=== PATIENT | female | born 1960 | race Caucasian/White ===

== ENCOUNTER 2020-11-28 07:06 | Emergency (ER) | payer BC, OTHER ==
[~2020-11-28] VITALS: Ht 167.7 cm; Wt 121.8 kg
[2020-11-28] MEDS ORDERED: KETOROLAC 30 MG/ML VIAL IVP ONE (07:30)
[2020-11-28] MEDS ORDERED: ORPHENADRINE 60 MG/2 ML (NORFLEX) AMP (ED ONLY) IV ONE (07:30)
[2020-11-28 07:43] LABS: BASOPHILS # (AUTO) 0.1 10^3/uL (0.0-0.1); BASOPHILS % (AUTO) 1 % (0-10); EOSINOPHILS # (AUTO) 0.1 10^3/uL (0.0-0.3); EOSINOPHILS % (AUTO) 1 % (0-10); HEMATOCRIT 32 % (35-52); HEMOGLOBIN 10.4 g/dL (11.5-16.0); LYMPHOCYTES # (AUTO) 0.6 10^3/uL (1.0-4.0); LYMPHOCYTES % (AUTO) 6 % (12-44); MEAN CORPUSCULAR HEMOGLOBIN 30 pg (25-34); MEAN CORPUSCULAR HGB CONC 33 g/dL (32-36); MEAN CORPUSCULAR VOLUME 90 fL (80-99); MEAN PLATELET VOLUME 12.5 fL (9.0-12.2); MONOCYTES # (AUTO) 0.5 10^3/uL (0.0-1.0); MONOCYTES % (AUTO) 5 % (0-12); NEUTROPHILS # (AUTO) 8.4 10^3/uL (1.8-7.8); NEUTROPHILS % (AUTO) 86 % (42-75); PLATELET COUNT 365 10^3/uL (130-400); WHITE BLOOD COUNT 9.8 10^3/uL (4.3-11.0)
[2020-11-28 07:55] LABS: POTASSIUM 4.5 MMOL/L (3.6-5.0)
[2020-11-28 07:56] LABS: CALCIUM 9.5 MG/DL (8.5-10.1)
[2020-11-28 08:00] LABS: CREATININE SERUM 0.88 MG/DL (0.60-1.30)
[2020-11-28 08:03] LABS: MAGNESIUM 1.9 MG/DL (1.6-2.4)
--- NOTE | 2020-11-28 08:03 | ED Back Pain ---
General Chief Complaint: Back Problems Stated Complaint: MUSCLE SPASMS Nursing Triage Note: TO ED PER EMS FROM HOME. PATIENT REPORTS IS HAVING BACK SPASMS THAT GO DOWN LEG. SINCE YESTERDAY. 50 MCG OF FENTYNEL GIVEN IM BY EMS. Source of Information: Patient Exam Limitations: No Limitations History of Present Illness Date Seen by Provider: Nov 28, 2020 Time Seen by Provider: 07:58 Initial Comments This is 60-year-old woman presents to the emergency room via EMS with greater than 12 hours of severe exacerbation of lower back pain with associated radicular symptoms down the left leg. Symptoms actually started over a month ago when she had a foot injury and she was using a postop shoe. Gait was altered. She has since been seen multiple times and engaged in physical therapy. She reports a resulting leg length discrepancy that she has been working to mitigate. She has not yet had any imaging of her back. Today she reports spasms in her lower back that seem to be centralized and bilateral. She additionally has spasms, numbness, and pain intermittently in the left lower extremity. She has been taking doses of ibuprofen, baclofen, and tramadol at home without complete relief. She has had difficulty ambulating due to her pain. Patient typically takes Celebrex but stopped that several days ago and started taking ibuprofen due to better efficacy in controlling this acute exacerbation of pain. She denies any significant weakness in the leg, bowel or bladder dysfunction, or groin numbness. Patient reports chronic illnesses including diet-controlled diabetes, essential thrombocythemia, and history of breast cancer status post left mastectomy. Allergies and Home Medications Allergies Coded Allergies: mercury (elemental) (Verified Allergy, Unknown, 11/28/20) Patient Home Medication List Home Medication List Reviewed: Yes Docusate Sodium (Colace) 100 Mg Capsule, 100 MG PO DAILY Prescribed by: BLAKE DSOUZA on 11/28/20 0852 Hydrocodone/Acetaminophen (Hydrocodone-Acetamin 5-325 mg) 1 Each Tablet, 1 TAB PO Q4H PRN for PAIN-BREAKTHROUGH Prescribed by: BLAKE DSOUZA on 11/28/20 0853 Review of Systems Constitutional: no symptoms reported EENTM: no symptoms reported Respiratory: no symptoms reported Cardiovascular: no symptoms reported Gastrointestinal: no symptoms reported Genitourinary: no symptoms reported Musculoskeletal: see HPI Skin: no symptoms reported Psychiatric/Neurological: See HPI Past Pegzslj-Loopie-Efneut Hx Patient Social History Tobacco Use?: No Use of E-Cig and/or Vaping dev: No Substance use?: No Pt feels they are or have been: No Immunizations Up To Date First/Initial COVID19 Vaccinat: FEB Second COVID19 Vaccination Anthony: SHANTEL COVID19 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 oz. 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 Norm as Tested Skin: Normal Color, Warm/Dry Progress/Results/Core Measures Results/Orders Lab Results Laboratory Tests Test 11/28/20 07:30 Range/Units White Blood Count 9.8 4.3-11.0 10^3/uL Red Blood Count 3.52 L 3.80-5.11 10^6/uL Hemoglobin 10.4 L 11.5-16.0 g/dL Hematocrit 32 L 35-52 % Mean Corpuscular Volume 90 80-99 fL Mean Corpuscular Hemoglobin 30 25-34 pg Mean Corpuscular Hemoglobin Concent 33 32-36 g/dL Red Cell Distribution Width 16.5 H 10.0-14.5 % Platelet Count 365 130-400 10^3/uL Mean Platelet Volume 12.5 H 9.0-12.2 fL Immature Granulocyte % (Auto) 1 % Neutrophils (%) (Auto) 86 H 42-75 % Lymphocytes (%) (Auto) 6 L 12-44 % Monocytes (%) (Auto) 5 0-12 % Eosinophils (%) (Auto) 1 0-10 % Basophils (%) (Auto) 1 0-10 % Neutrophils # (Auto) 8.4 H 1.8-7.8 10^3/uL Lymphocytes # (Auto) 0.6 L 1.0-4.0 10^3/uL Monocytes # (Auto) 0.5 0.0-1.0 10^3/uL Eosinophils # (Auto) 0.1 0.0-0.3 10^3/uL Basophils # (Auto) 0.1 0.0-0.1 10^3/uL Immature Granulocyte # (Auto) 0.1 0.0-0.1 10^3/uL Neutrophils % (Manual) 84 % Lymphocytes % (Manual) 8 % Monocytes % (Manual) 6 % Eosinophils % (Manual) 1 % Basophils % (Manual) 0 % Band Neutrophils 1 % Anisocytosis SLIGHT Sodium Level 137 135-145 MMOL/L Potassium Level 4.5 3.6-5.0 MMOL/L Chloride Level 108 H 98-107 MMOL/L Carbon Dioxide Level 15 L 21-32 MMOL/L Anion Gap 14 5-14 MMOL/L Blood Urea Nitrogen 20 H 7-18 MG/DL Creatinine 0.88 0.60-1.30 MG/DL Estimat Glomerular Filtration Rate 65 BUN/Creatinine Ratio 23 Glucose Level 131 H 70-105 MG/DL Calcium Level 9.5 8.5-10.1 MG/DL Magnesium Level 1.9 1.6-2.4 MG/DL My Orders Orders - BLAKE OATES MD Basic Metabolic Panel (11/28/20 07:19) Cbc With Automated Diff (11/28/20 07:19) Magnesium (11/28/20 07:19) Ed Iv/Invasive Line Start (11/28/20 07:19) Iron Tibc %Sat & Ferritin (11/28/20 07:19) Ketorolac Injection (Toradol Injection) (11/28/20 07:30) Orphenadrine Inj (Ed Only) (Norflex Inje (11/28/20 07:30) Manual Differential (11/28/20 07:30) Medications Given in ED Current Medications Medications Dose Ordered Sig/Favian Route Start Time Stop Time Status Last Admin Dose Admin Ketorolac Tromethamine 30 mg ONCE ONCE IVP 11/28/20 07:30 11/28/20 07:31 DC 11/28/20 07:33 30 MG Orphenadrine Citrate 30 mg ONCE ONCE IV 11/28/20 07:30 11/28/20 07:31 DC 11/28/20 07:31 30 MG Vital Signs/I&O 11/28/20 11/28/20 07:06 09:14 Temp 36.4 Pulse 78 65 Resp 18 18 B/P (MAP) 193/94 (127) 167/86 Pulse Ox 100 96 O2 Delivery Room Air Blood Pressure Mean: 127 Progress Progress Note #1: Time: 08:06 Progress Note Due to patient's chronic conditions we are checking a CBC and electrolytes as well as iron. Patient has been treated with Toradol and Norflex. We will monitor her progress and treat with additional medications if necessary. Emergent imaging is not deemed necessary at this time due to lack of evidence for spinal cord compression or traumatic injury. Progress Note #2: Progress Note Labs were unremarkable. Patient had an excellent response to Toradol and Norflex. We discussed options for further pain management and decided on hydrocodone. Prescription was provided. We discussed return precautions and need for follow-up in the outpatient setting. Patient was ambulatory and satisfied with her improvement. She was discharged with plan to return home by [facility]. Departure Impression Primary Impression: Low back pain Qualified Codes: M54.42 - Lumbago with sciatica, left side Additional Impression: Muscle spasm Disposition: 01 HOME, SELF-CARE Condition: Improved Departure-Patient Inst. Decision time for Depature: 08:08 Referrals: JUAN F GONZALEZ MD (PCP/Family) Primary Care Physician Patient Instructions: Low Back Pain in Adults, Radiculopathy Add. Discharge Instructions: Continue with therapies as previously directed by your primary health care team. You may substitute hydrocodone for the Ultram for more intense pain. Please use hydrocodone with caution when also using other potentially sedating medications such as Ultram or baclofen. You may wish to take a stool softener such as Colace or mild laxative MiraLAX (polyethylene glycol) to help prevent constipation while using opioids like hydrocodone. Follow-up with your primary care provider soon as possible to discuss further treatments and other possible work-up which might include imaging of your spine. Continue to use assistive devices such as a walker as needed to aid ambulation. Call with questions or concerns. Return to the ER if you have worsening symptoms, especially if you develop progressive weakness of your lower extremities, numbness of the groin, or bowel or bladder control problems. All discharge instructions reviewed with patient and/or family. Voiced understa nding. Scripts Docusate Sodium (Colace) 100 Mg Capsule 100 MG PO DAILY, #30 CAP Prov: BLAKE OATES MD 11/28/20 Hydrocodone/Acetaminophen (Hydrocodone-Acetamin 5-325 mg) 1 Each Tablet 1 TAB PO Q4H PRN for PAIN-BREAKTHROUGH, #15 TAB Prov: BLAKE OATES MD 11/28/20 BLAKE OATES MD Nov 28, 2020 08:03
[2020-11-28 08:17] LABS: ANISOCYTOSIS SLIGHT; BAND NEUTROPHILS 1 %; BASOPHILS % (MANUAL) 0 %; EOSINOPHILS % (MANUAL) 1 %; LYMPHOCYTES % (MANUAL) 8 %; MONOCYTES % (MANUAL) 6 %; NEUTROPHILS % (MANUAL) 84 %
[2020-11-28] MEDS ORDERED: DOCU-143 PO (08:52)
[2020-11-28] MEDS ORDERED: ACHD5005 PO (08:52)
[2020-11-28 09:14] VITALS: BP 167/86
== END 2020-11-28 09:06 | disposition home or self-care (01) ==
LOC: EDUNIT# 07:06 → ER 07:07
DX: M54.5 Low back pain (principal); E11.40 Type 2 diabetes mellitus with diabetic neuropathy, unspecified; E66.9 Obesity, unspecified; Z68.41 Body mass index [BMI] 40.0-44.9, adult
CPT/HCPCS: 36415; 80048; 82728; 83540; 83550; 83735; 85007; 85027

== ENCOUNTER 2020-12-19 20:08 | Emergency (ER) | payer BC ==
[~2020-12-19] VITALS: Ht 167.7 cm; Wt 121.8 kg
[~2020-12-19 20:08] MED LIST: ACHD5005 PO; DOCU-143 PO
[2020-12-19] MEDS ORDERED: HYDROmorphone 2 MG/ML VIAL (DILAUDID) IM ONE (20:30)
[2020-12-19] MEDS ORDERED: ORPHENADRINE 60 MG/2 ML (NORFLEX) AMP (ED ONLY) IM ONE (20:30)
--- NOTE | 2020-12-19 20:32 | ED Back Pain ---
General Chief Complaint: Back Problems Stated Complaint: BACK PAIN Source of Information: Patient Exam Limitations: No Limitations History of Present Illness Date Seen by Provider: Dec 19, 2020 Time Seen by Provider: 20:20 Initial Comments Patient is a 60-year-old female who presents to the emergency room with a chief complaint of severe low back pain onset about an hour and a half prior to arrival. Patient states that she was taking off her jeans this evening and had intensification of pain with radiation down her left leg. Patient states that she has had a work-up for back pathology that includes an MRI last Saturday ordered by her primary care physician. She states she has "for bulging disks". She tells me she has a follow-up appointment with her primary care physician, Dr. Lencho Saravia through [facility] in [place] scheduled for tomorrow. She denies any loss of bowel or bladder function. She denies leg weakness. She has had no recent traumas. She has been taking a host of medications including oxycodone and hydrocodone, baclofen, prednisone. She is currently on a prednisone taper and states that since she has been tapering she has had intensification of the pain. She actually recently quit taking the baclofen because her doctor told her since it was not working she did not need to take it. No recent illnesses, Covid concerns. All other review of systems reviewed and negative except as stated Timing/Duration: 1-3 Hours Severity: Severe Pain/Injury Location: Back (lumbar) Radiation: Lower Legs (left) Modifying Factors: Worse With Movement Associated Symptoms: muscle spasms, numbness in legs/feet (sensation is "different" in left leg over right), lower back pain Allergies and Home Medications Allergies Coded Allergies: mercury (elemental) (Verified Allergy, Unknown, 11/28/20) Patient Home Medication List Home Medication List Reviewed: Yes Docusate Sodium (Colace) 100 Mg Capsule, 100 MG PO DAILY Prescribed by: BLAKE DSOUZA on 11/28/20 0852 Hydrocodone/Acetaminophen (Hydrocodone-Acetamin 5-325 mg) 1 Each Tablet, 1 TAB PO Q4H PRN for PAIN-BREAKTHROUGH Prescribed by: BLAKE DSOUZA on 11/28/20 0853 Methocarbamol (Methocarbamol) 500 Mg Tablet, 1,500 MG PO Q8H PRN for muscle spasm Prescribed by: RUSTAM GONZALES on 12/19/209 Review of Systems Constitutional: see HPI EENTM: no symptoms reported Respiratory: no symptoms reported Cardiovascular: no symptoms reported Gastrointestinal: no symptoms reported Genitourinary: no symptoms reported Musculoskeletal: back pain Skin: no symptoms reported Psychiatric/Neurological: Paresthesia (Left leg) All Other Systems Reviewed Negative Unless Noted: Yes Past Evsdkwt-Rqyaad-Hdqqhz Hx Immunizations Up To Date First/Initial COVID19 Vaccinat: FEB Second COVID19 Vaccination Anthony: MAR Past Medical History Surgeries: Yes Breast Respiratory: No Cardiac: No Neurological: Yes Neuropathy Genitourinary: No Gastrointestinal: No Musculoskeletal: Yes Chronic Back Pain Endocrine: Yes Diabetes, Non-Insulin dep HEENT: No Cancer: No Psychosocial: No Physical Exam Vital Signs Vital Signs - First Documented 12/19/20 20:11 Temp 37.0 Pulse 93 Resp 24 B/P (MAP) 186/111 (136) Pulse Ox 99 O2 Delivery Room Air Capillary Refill : Height, Weight, BMI Height: '" Weight: lbs. oz. kg; 43.00 BMI Method: General Appearance: WD/WN, Anxious, Moderate Distress Neck: Normal Inspection Cardiovascular: Regular Rate, Rhythm, Normal Peripheral Pulses (2+ DP bilateral feet) Respiratory: Lungs Clear, Normal Breath Sounds, No Accessory Muscle Use, No Respiratory Distress Gastrointestinal: Soft (obese) Back: Normal Inspection, Decreased Range of Motion, Other (tendereness lower lumbat spine - even to light palpation of the skin. no rashes/erythema observed) Extremity: Normal Inspection, Normal Range of Motion, No Calf Tenderness, No Pedal Edema Neurologic/Psychiatric: Alert, Oriented x3, Other (anxious - able to wiggle toes bilateral feet, good dirsiflexion bilateral feet; 2+ DTR right patella, unable to get left (apprehension) 1+ bilateral ankle jerks) Skin: Normal Color, Warm/Dry Progress/Results/Core Measures Results/Orders My Orders Orders - RUSTAM GONZALES MD Hydromorphone Injection (Dilaudid Inject (12/19/20 20:30) Orphenadrine Inj (Ed Only) (Norflex Inje (12/19/20 20:30) Hydromorphone Injection (Dilaudid Inject (12/19/20 22:48) Medications Given in ED Current Medications Medications Dose Ordered Sig/Favian Route Start Time Stop Time Status Last Admin Dose Admin Hydromorphone HCl 0.5 mg ONCE ONCE IM 12/19/20 20:30 12/19/20 20:31 DC 12/19/20 20:47 0.5 MG Orphenadrine Citrate 60 mg ONCE ONCE IM 12/19/20 20:30 12/19/20 20:31 DC 12/19/20 20:47 60 MG Vital Signs/I&O 12/19/20 12/19/20 20:11 23:04 Temp 37.0 37.0 Pulse 93 87 Resp 24 18 B/P (MAP) 186/111 (136) 196/83 Pulse Ox 99 99 O2 Delivery Room Air Room Air Progress Progress Note : Time: 21:26 Progress Note re-evaluated, feeling MUCH better. Reevaluated the patient prior to discharge, will go ahead and give her another half milligram of Dilaudid for further pain control. Patient has an appointment with her primary care physician tomorrow. We will send her a prescription for Robaxin to [facility] pharmacy. Patient is advised to use heating pads to the sore area of her back. I discussed the use of CBD oil with the patient, recommendations given for this. Patient has no clinical or objective findings concerning for acute cauda equina syndrome. Neurovascularly intact to the bilateral lower extremities. Advised the patient to use caution with all the opiate prescriptions that she has at home. She has arranged a ride to her primary care physician's office tomorrow for follow-up. Advised her to come back to the emergency room if she has any loss of bowel or bladder function, loss of function of the left lower extremity, fever or other worsening concerns. She verbalized understanding and is agreeable with the plan of care. All questions are sought and answered. Departure Impression Primary Impression: Low back pain Qualified Codes: M54.42 - Lumbago with sciatica, left side Ruled Out: Thoracic back sprain Disposition: 01 HOME, SELF-CARE Condition: Stable Departure-Patient Inst. Decision time for Depature: 22:36 Referrals: BETZY BEGUM DO (PCP/Family) Primary Care Physician Patient Instructions: Low Back Pain (DC) Add. Discharge Instructions: Take your pain medications as directed. Space the narcotics as far apart as possible. Muscle relaxers as needed every 6-8 hours. I have sent a prescription to your pharmacy at [facility]. Drink plenty of fluids to stay well-hydrated. Keep your follow-up appointment with your primary care doctor tomorrow. Scripts Methocarbamol (Methocarbamol) 500 Mg Tablet 1500 MG PO Q8H PRN for muscle spasm, #20 TAB Prov: RUSTAM GONZALES MD 12/19/20 RUSTAM GONZALES MD Dec 19, 2020 20:31
[2020-12-19] MEDS ORDERED: METH-731 PO (22:39)
[2020-12-19] MEDS ORDERED: HYDROmorphone 2 MG/ML VIAL (DILAUDID) IM STA (22:48)
[2020-12-19 23:04] VITALS: BP 196/83
== END 2020-12-19 23:04 | disposition home or self-care (01) ==
LOC: EDUNIT# 20:08 → ER 20:09
DX: G89.29 Other chronic pain (principal); M54.50 Low back pain, unspecified; E66.9 Obesity, unspecified; E11.9 Type 2 diabetes mellitus without complications; Z68.41 Body mass index [BMI] 40.0-44.9, adult; Z79.891 Long term (current) use of opiate analgesic
CPT/HCPCS: 99284